=== PATIENT | female | born 1990 | race American Indian/Alaskan Native ===

== ENCOUNTER 2017-08-13 10:37 | Emergency (ER) | payer MEDICAID ==
[2017-08-13 12:01] LABS: Basophils # (Auto) 0.1 K/mm3 (0.0-0.1); Basophils % (Auto) 0.4 % (0.0-1.8); Eosinophils # (Auto) 0.2 K/mm3 (0.0-0.4); Eosinophils % (Auto) 1.2 % (0.0-4.3); Hemoglobin 11.3 gm/dl (10.1-14.3); Lymphocytes # (Auto) 1.9 K/mm3 (1.2-5.4); Lymphocytes % (Auto) 12.4 % (13.4-35.0); Mean Corpuscular HGB Conc 32 % (30-34); Mean Corpuscular Hemoglobin 26 pg (28-32); Mean Corpuscular Volume 80 fl (79-97); Monocytes # (Auto) 0.6 K/mm3 (0.0-0.8); Monocytes % (Auto) 3.9 % (0.0-7.3); Platelet Count 227 K/mm3 (140-440); Red Blood Count 4.39 M/mm3 (3.65-5.03); Red Cell Distribution Width 15.4 % (13.2-15.2)
[2017-08-13 12:11] LABS: Bacteria,Urine 4+ /HPF (Negative); Bilirubin,Urine NEG (Negative); Blood,Urine NEG (Negative); Color,Urine Yellow (Yellow); Hyaline Casts,Urine 1 /LPF; Protein,Urine <15 mg/dL mg/dL (Negative); Urobilinogen,Urine < 2.0 mg/dL (<2.0)
[2017-08-13 12:18] LABS: BUN/Creatinine Ratio 10; Blood Urea Nitrogen 8 mg/dL (7-17); Calcium 9.3 mg/dL (8.4-10.2); Hemolysis Index 23
--- NOTE | 2017-08-13 12:31 | Emergency Department Report ---
ED General Adult HPI - General Chief complaint: Nausea/Vomiting/Diarrhea Stated complaint: NAUSEA/VOMITING Time Seen by Provider: 08/13/17 12:26 Source: patient Mode of arrival: Ambulatory Limitations: No Limitations - History of Present Illness Initial comments: pt is a 27 y/o aaf with hx G4, P2, A1, is currently 13 weeks follow by [facility] 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 pt states abdominal cramping intermittent 4/10, no vaginal bleeding no vaginal discharge no fever. and low back pain , Last n/v this am. Onset/Timin -: week(s) Location: abdomen Radiation: non-radiation Severity scale (0 -10): 4 Quality: aching, other (cramping ) Consistency: intermittent Improves with: none Worsens with: none Associated Symptoms: nausea/vomiting Treatments Prior to Arrival: none - Related Data Previous Rx's Medication Instructions Recorded Last Taken Type Acetaminophen 650 mg PO QID #60 tablet 08/13/17 Unknown Rx Cephalexin [Keflex] 500 mg PO Q12HR #20 cap 08/13/17 Unknown Rx Ondansetron [Zofran Odt] 4 mg PO TID PRN #30 tab.rapdis 08/13/17 Unknown Rx Allergies Allergy/AdvReac Type Severity Reaction Status Date / Time No Known Allergies Allergy Verified 05/30/13 21:01 ED Review of Systems ROS: Stated complaint: NAUSEA/VOMITING Other details as noted in HPI Constitutional: denies: chills, fever Eyes: denies: eye pain, eye discharge, vision change ENT: denies: ear pain, throat pain Respiratory: denies: cough, shortness of breath, wheezing Cardiovascular: denies: chest pain, palpitations Endocrine: no symptoms reported Gastrointestinal: abdominal pain, nausea, vomiting. denies: diarrhea, constipation, hematemesis, melena Genitourinary: denies: urgency, dysuria, frequency, hematuria, discharge, dyspareunia Musculoskeletal: back pain. denies: joint swelling, arthralgia Skin: denies: rash, lesions Neurological: denies: headache, weakness, paresthesias Psychiatric: denies: anxiety, depression Hematological/Lymphatic: as per HPI ED Past Medical Hx - Past Medical History Previous Medical History?: Yes Hx Hypertension: No Hx Renal Disease: No Hx Sickle Cell Disease: Yes (Sickle Cell TRAIT) Hx Seizures: No Hx Asthma: Yes (last attack 05/2013) Hx HIV: No Additional medical history: Vaginal delivery x 2 - Surgical History Past Surgical History?: Yes Additional Surgical History: x 1 - Social History Smoking Status: Never Smoker Substance Use Type: Alcohol - Medications Home Medications: Home Medications Medication Instructions Recorded Confirmed Last Taken Type Acetaminophen 650 mg PO QID #60 tablet 08/13/17 Unknown Rx Cephalexin [Keflex] 500 mg PO Q12HR #20 cap 08/13/17 Unknown Rx Ondansetron [Zofran Odt] 4 mg PO TID PRN #30 tab.rapdis 08/13/17 Unknown Rx ED Physical Exam - General Limitations: No Limitations General appearance: alert, in no apparent distress - Head Head exam: Present: atraumatic, normocephalic - Eye Eye exam: Present: normal appearance - ENT ENT exam: Present: mucous membranes moist - Neck Neck exam: Present: normal inspection - Respiratory Respiratory exam: Present: normal lung sounds bilaterally. Absent: respiratory distress, wheezes, rhonchi - Cardiovascular Cardiovascular Exam: Present: regular rate, normal rhythm. Absent: systolic murmur, diastolic murmur, rubs, gallop - GI/Abdominal GI/Abdominal exam: Present: soft, normal bowel sounds. Absent: distended, tenderness, guarding, organomegaly, mass, bruit, hernia - Rectal Rectal exam: Present: deferred - Extremities Exam Extremities exam: Present: normal inspection, full ROM, normal capillary refill. Absent: tenderness - Back Exam Back exam: Present: normal inspection, full ROM. Absent: tenderness, CVA tenderness (R), CVA tenderness (L), muscle spasm, paraspinal tenderness, vertebral tenderness, rash noted - Neurological Exam Neurological exam: Present: alert, oriented X3, CN II-XII intact, normal gait, reflexes normal - Psychiatric Psychiatric exam: Present: normal affect, normal mood - Skin Skin exam: Present: warm, dry, intact, normal color. Absent: rash ED Course Vital Signs 08/13/17 11:26 Temperature 98.9 F Pulse Rate 96 H Respiratory 20 Rate Blood Pressure 126/79 O2 Sat by Pulse 99 Oximetry ED Medical Decision Making - Lab Data Result diagrams: 08/13/17 11:39 08/13/17 11:39 Laboratory Tests 08/13/17 08/13/17 08/13/17 11:39 11:39 Unknown WBC 15.3 H RBC 4.39 Hgb 11.3 Hct 35.0 MCV 80 MCH 26 L MCHC 32 RDW 15.4 H Plt Count 227 Lymph % (Auto) 12.4 L [place] % (Auto) 3.9 Eos % (Auto) 1.2 Baso % (Auto) 0.4 Lymph # 1.9 [place] # 0.6 Eos # 0.2 Baso # 0.1 Seg Neutrophils % 82.1 H Seg Neutrophils # 12.5 H Sodium 135 L Potassium 3.9 Chloride 98.7 Carbon Dioxide 25 Anion Gap 15 BUN 8 Creatinine 0.8 Estimated GFR > 60 BUN/Creatinine Ratio 10 Glucose 106 H Calcium 9.3 Urine Color Yellow Urine Turbidity Hazy Urine pH 6.0 Ur Specific [place] 1.011 Urine Protein <15 mg/dl Urine Glucose (UA) Neg Urine Ketones Neg Urine Blood Neg Urine Nitrite Neg Urine Bilirubin Neg Urine Urobilinogen < 2.0 Ur Leukocyte Esterase Mod Urine WBC (Auto) 24.0 H Urine RBC (Auto) 4.0 U Epithel Cells (Auto) 6.0 Urine Bacteria (Auto) 4+ Hyaline Casts 1 - Radiology Data Radiology results: report reviewed, image reviewed Single IUP 13 W and 3days, hr 162 bpm - Medical Decision Making pt is a 27 y/o aaf with hx G4, P2, A1, is currently 13 weeks follow by [facility] Dr. 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 pt states abdominal cramping intermittent 4/10, no vaginal bleeding no vaginal discharge no fever. and low back pain , Last n/v this am. abd exam: bs normal soft, no rebound no guarding no cva tenderness pt denies vaginal bleeding or discharge. US OB : Singl IUP 13 w, 3 days, labs: cbc: wbc: 15, cmp: normal, ua: luek, wbc, plan tx of uti during , pt denies vaginal discharge no bleeding , refuses expolration for STI, will tx with Keflex, zofran , tylenol and follow up with OBGYN at [facility] in 2-3 days return to ed if symptoms worsen, pt verbalized agreement and understanding with same. Critical care attestation.: If time is entered above; I have spent that time in minutes in the direct care of this critically ill patient, excluding procedure time. ED Disposition Clinical Impression: Nausea and vomiting during UTI (urinary tract infection) during Qualifiers: Trimester: second trimester Qualified Code(s): O23.42 - Unspecified infection of urinary tract in , second trimester Disposition: TO HOME OR SELFCARE Is pt being admited?: No Does the pt Need Aspirin: No Condition: Good Instructions: Urinary Tract Infection in Women (ED), Acute Nausea and Vomiting (ED) Prescriptions: Acetaminophen 650 mg PO QID #60 tablet Cephalexin [Keflex] 500 mg PO Q12HR #20 cap Ondansetron [Zofran Odt] 4 mg PO TID PRN #30 tab.rapdis PRN Reason: Nausea And Vomiting Referrals: PRIMARY CARE, [Primary Care Provider] - 3-5 Days Forms: Work/School Release Form(ED) Time of Disposition: 13:51
[2017-08-13] MEDS ORDERED: ZOFRAN ODT PO ONE (12:39)
--- NOTE | 2017-08-13 14:02 | Ultrasound Report ---
FINAL REPORT EXAM: US OB < = 14 WEEKS FETUS HISTORY: abdominal pain 13 weeks preg TECHNIQUE: Transabdominal OB ultrasound. PRIORS: None currently available. FINDINGS: Single intrauterine dates 13.1 weeks. SARAH equals February 17, 2018. This is 1 day older compared to the LMP and is within normal limits. BPD: 13.3 weeks. FL: 12.5 weeks. Placenta: Fundal. No previa. Hypoechoic area within the placenta may represent a venous Baxter measuring 9 x 4 x 8 mm. heart rate: 162. BPM. Uterus: 14.9 x 7.9 x 10.7 cm. Intrauterine gestational sac, yolk sac, and pole. No subchorionic bleed. Right ovary: 6.4 x 5.0 x 5.6 cm. Simple appearing cyst measures 5.4 cm. No internal flow. Left Ovary: 5.2 x 2.6 x 3.9 cm. Follicular type cyst measures 1.9 cm. Adnexal: Unremarkable. No free fluid. IMPRESSION: Single live intrauterine . Simple large right ovarian cyst. Follicular type cyst in the left ovary. Probable venous Baxter within the placenta.
[2017-08-13 14:15] VITALS: BP 120/80
== END 2017-08-13 14:15 | disposition home or self-care (01) ==
LOC: ED 10:37
DX: O23.41 Unspecified infection of urinary tract in pregnancy, first trimester (principal); O21.0 Mild hyperemesis gravidarum; Z3A.13 13 weeks gestation of pregnancy
CPT/HCPCS: 36415; 76801; 80048; 81001; 84702; 85025; Q0162

== ENCOUNTER 2017-12-14 19:24 | Outpatient (CLI) | payer MEDICAID ==
[2017-12-14 20:05] VITALS: BP 101/56
--- NOTE | 2017-12-14 22:14 | Ultrasound Report ---
FINAL REPORT EXAM: US OB BPP WO NON-STRESS HISTORY: well being TECHNIQUE: Grayscale and color flow imaging of the uterus was performed for the purpose of evaluation of biophysical profile. Comparison: Limited Ob ultrasound also performed today for the purpose of evaluation of ELISA. FINDINGS: Biophysical profile grading is as follows: breathing movements 2, movement 2, posture and tone 2, qualitative amniotic fluid volume 2. Biophysical profile is 8/8. heart rate is measured at 163 beats per minute. IMPRESSION: 1. Biophysical profile 8/8 with heart rate measured at 163 beats per minute.
--- NOTE | 2017-12-14 22:25 | Ultrasound Report ---
FINAL REPORT EXAM: US OB LIMITED HISTORY: ELISA only TECHNIQUE: Grayscale, color flow and M-mode imaging for the purpose of evaluating ELISA FINDINGS: ELISA is measured at 23.8 centimeters. heart rate is measured at 163 beats per minute. IMPRESSION: 1. ELISA is measured at 23.8 centimeters.
== END 2017-12-14 22:30 | disposition home or self-care (01) ==
LOC: TRG 19:24
PROVIDERS: ATTEND Obstetrics & Gynecology
DX: O36.8130 Decreased fetal movements, third trimester, not applicable or unspecified (principal); O26.893 Other specified pregnancy related conditions, third trimester; O99.213 Obesity complicating pregnancy, third trimester; J45.909 Unspecified asthma, uncomplicated; Z3A.30 30 weeks gestation of pregnancy
CPT/HCPCS: 59025; 76815; 76819

== ENCOUNTER 2018-01-29 09:30 | Outpatient (CLI) | payer MEDICAID ==
[2018-01-29] MEDS ORDERED: LACTATED RINGERS 500 ML IV ONE (10:07)
[2018-01-29 10:41] VITALS: BP 104/65
--- NOTE | 2018-01-29 13:20 | Ultrasound Report ---
ULTRASOUND BIOPHYSICAL PROFILE: History: well being Technique: Transabdominal ultrasound with Doppler interrogation. 2 - breathing movements 2 - movements 2 - posture and tone 2 - Qualitative amniotic fluid volume 8 - TOTAL SCORE OF POSSIBLE 8 Heart Rate (bpm) 139
== END 2018-01-29 11:45 | disposition home or self-care (01) ==
LOC: TRG 09:30
PROVIDERS: ATTEND Obstetrics & Gynecology
DX: O47.03 False labor before 37 completed weeks of gestation, third trimester (principal); O36.8130 Decreased fetal movements, third trimester, not applicable or unspecified; O99.513 Diseases of the respiratory system complicating pregnancy, third trimester; O99.213 Obesity complicating pregnancy, third trimester; J45.909 Unspecified asthma, uncomplicated; Z3A.36 36 weeks gestation of pregnancy
CPT/HCPCS: 59025; 76819

== ENCOUNTER 2018-02-08 12:05 | Outpatient (CLI) | payer MEDICAID ==
[2018-02-08 12:25] VITALS: BP 116/67
[2018-02-08] MEDS ORDERED: VISTARIL PO PRN (15:00)
== END 2018-02-08 15:43 | disposition home or self-care (01) ==
LOC: TRG 12:05
PROVIDERS: ATTEND Obstetrics & Gynecology
DX: O47.1 False labor at or after 37 completed weeks of gestation (principal); O99.213 Obesity complicating pregnancy, third trimester; O99.513 Diseases of the respiratory system complicating pregnancy, third trimester; J45.909 Unspecified asthma, uncomplicated; Z3A.38 38 weeks gestation of pregnancy
CPT/HCPCS: 59025; Q0177

== ENCOUNTER 2018-02-11 11:21 | Inpatient (IN) | payer MEDICAID ==
[2018-02-11] MEDS ORDERED: XYLOCAINE 2% INFILTRATI ONE (11:29)
[2018-02-11] MEDS ORDERED: BRETHINE SUB-Q PRN (11:29)
[2018-02-11] MEDS ORDERED: SUBLIMAZE IV PRN (11:29)
[2018-02-11] MEDS ORDERED: ZOFRAN IV PRN (11:29)
[2018-02-11] MEDS ORDERED: MINERAL OIL PO PRN (11:29)
--- NOTE | 2018-02-11 11:32 | History and Physical Report ---
History of Present Illness Date of examination: 02/11/18 (sent for IOL as per [facility] recommendation) Date of admission: 02/11/18 11:21 History of present illness: Pt sent in for IOL No chges made to hx. PE as noted in EMR EDC Confirmation: 02/20/2018 Gestational Age: 9 3/7 weeks Past History : 4 Term Births: 2 Living Children: 2 Para: 2 Elect. Ab: 1 # 1 Delivery date: 03/27/2010 Weeks Gestation: 40 Delivery type: Vaginal Hours of labor: 8 Anesthesia type: epidural Delivery location: [facility] Infant Sex: female weight: 7.81 # 2 Delivery date: 06/13/2013 Weeks Gestation: 39 Delivery type: Vaginal Anesthesia type: epidural Delivery location: [facility] Sex: female weight: 7.50 Comments: 1+mec # 3 Delivery date: 2010 Weeks Gestation: 12 Delivery type: EAB Past Medical History: Reviewed history from 04/30/2015 and no changes required: poor vision left eye Morbid obesity Hydradenitis (surgically treated) Past Surgical History: Eye sugery in 2011, both eyes Hydradenitis surgically treated in [facility] Family History Summary: Mother (biol.) - Has Family History of Diabetes - Entered On: 07/21/2017 Father (biol.) - Has Family History of Coronary Heart Disease - Brother with heart murmur - Entered On: 07/21/2017 Mother (biol.) - Has Family History Breast Cancer - Entered On: 07/21/2017 General Comments - FH: Family History Breast Cancer--mother dx 46, m gr aunt No Family History of Colon Cancer No Family History of Ovarvian Cancer Social History: non smoker no e/d Patient is Smoking History: Patient has never smoked. Risk Factors: Smoked Tobacco Use: Never smoker HIV high-risk behavior: low risk Dietary Counseling: pn yes Past Medical History Anesthesia Complications: negative Anemia: negative Autoimmune Disorder: negative Bleeding Disorder: negative Blood Transfusions: negative Breast Disease: negative Diabetes: negative Heart Disease: negative Hypertension: negative Hepatitis/Liver Disease: negative Kidney Disease/UTI: negative Neurologic/Epilepsy/Migraines: negative Phlebitis/Varicosities: negative Psychiatric: negative Pulmonary Disease/Asthma: negative Thyroid Disease: negative Hospitalizations: negative 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 Infection History Hx of STD: none HIV Risk Eval: low risk Hepatitis B Risk Eval: low risk Personal hx. of genital herpes: no Partner hx. of genital herpes: no Rash, Viral, or Febrile illness since last LMP? no Varicella/Chicken Pox Status: Previous Disease TB Risk: no Genetic History Congenital Heart Defect: Mom: no Dad: no Daniel Disease: Mom: no Dad: no Thalassemia Mom: no Dad: no Neural Tube Defect Mom: no Dad: no Down's Syndrome Mom: no Dad: no Isaac-Sachs Mom: no Dad: no Sickle Cell Disease/Trait Mom: no Dad: no Hemophilia Mom: no Dad: no Muscular Dystrophy Mom: no Dad: no Cystic Fibrosis Mom: no Dad: no [place] Chorea Mom: no Dad: no Mental Retardation Mom: no Dad: no Fragile X Mom: no Dad: no Other Genetic/Chromosomal Disorder Mom: no Dad: no Child w/other defect Mom: no Dad: no Enviromental Exposures Xray Exposure: no Medication, drug, or alcohol use since LMP: no Chemical/Other Exposure: no Exposure to Cat Liter: no Hx of Parvovirus (Fifth Disease): no Occupational Exposure to Children: none Current Allergies (reviewed today): No known allergies Past History - Obstetrical History Expected Date of Delivery: 02/18/18 Actual Gestation: 39 Week(s) 1 Day(s) : 4 Para: 2 Hx # Term Pregnancies: 2 Induced : 1 Number of Living Children: 2 Medications and Allergies Allergies Allergy/AdvReac Type Severity Reaction Status Date / Time No Known Allergies Allergy Verified 05/30/13 21:01 Home Medications Medication Instructions Recorded Confirmed Last Taken Type cephALEXin [Keflex] 500 mg PO Q12HR #20 cap 08/13/17 02/08/18 2 Days Ago Rx ~01/27/18 Pnv,Calcium 72/Iron/Folic Acid 1 each PO DAILY 01/29/18 02/08/18 02/07/18 13:00 History [Pnv Plus Multivit Tab] Sertraline [Zoloft] 50 mg PO QDAY 02/08/18 02/08/1801/08/18 12:00 History - Physical Exam Breasts: Positive: deferred Cardiovascular: Regular rate, Normal S1, Normal S2 Lungs: Positive: Clear to auscultation, Normal air movement Abdomen: Positive: normal appearance, soft, normal bowel sounds. Negative: distention, tenderness Genitourinary (Female): Positive: normal external genitalia, normal perenium Vulva: both: normal Vagina: Positive: normal moisture. Negative: discharge Cervix: Negative: lesion, discharge Uterus: Positive: normal size, normal contour Adnexa: both: normal Anus/Rectum: Positive: normal perianal skin, heme negative. Negative: rectal mass, hemorrhoids Extremities: Positive: edema Deep Tendon Reflex Grade: Normal +2 - Obstetrical FHR: category 1 Uterine Contraction Monitor Mode: External Cervical Dilatation: 1.5 (Pelvis feels adequate for delivery) Cervical Effacement Percentage: 50 station: -3 Uterine Contraction Pattern: Irregular Uterine Tone Measurement Phase: Resting Uterine Contraction Intensity: Mild Results Result Diagrams: 02/11/18 12:30 All other labs normal. Assessment and Plan 27yo @ 39 weeks sent from [facility] for IOL due to poly and macrosomia. Pt is GBS negative. Discussed with pt and family the serial nature of induction, cervidil and pitocin, and the possible need for section due to baby's EFW. Pt's pelvis on exam appears to be adequate. Pt voiced understanding and desires to begin IOL. aware of admission - Patient Problems (1) BMI 50.0-59.9, adult Current Visit: Yes Status: Acute (2) Macrosomia affecting management of mother in third trimester, single gestation Current Visit: Yes Status: Acute (3) Polyhydramnios affecting in third trimester Current Visit: Yes Status: Acute (4) 39 weeks gestation of Current Visit: No Status: Acute
[2018-02-11] MEDS ORDERED: PITOCin/NS 20 UNIT/1000ML DRIP 20 UNITS/1,000 ML BAG IV SCH (12:00)
[2018-02-11 13:13] LABS: Hematocrit 32.9 % (30.3-42.9); Hemoglobin 10.8 gm/dl (10.1-14.3); Mean Corpuscular HGB Conc 33 % (30-34); Mean Corpuscular Volume 79 fl (79-97); Platelet Count 206 K/mm3 (140-440); Red Blood Count 4.15 M/mm3 (3.65-5.03); Red Cell Distribution Width 16.4 % (13.2-15.2)
[2018-02-11 13:14] LABS: Mean Corpuscular Hemoglobin 26 pg (28-32)
[2018-02-11] MEDS: PITOCin/NS 30 UNIT/500ML 30 UNITS/500 ML BAG IV SCH (14:40)
--- NOTE | 2018-02-11 19:00 | Progress Note ---
Assessment and Plan No cervical chg Pitocin off Will allow PM care and diet once ctx space out. Explained POC to pt and family Will plan low dose pit over night Subjective - Subjective Date of service: 02/11/18 (pit @ 16 mu CTX regular ) Principal diagnosis: IUP @ 39 weeks IOL Poly/Macrosomia Patient reports: movement normal, contractions Objective - Vital Signs Vital Signs: Vital Signs - 12hr 02/11/18 02/11/18 02/11/18 12:23 13:53 14:32 Temperature 98.6 F Pulse Rate 92 H 86 107 H Respiratory 20 Rate Blood Pressure 112/68 Blood Pressure 116/68 [Right] O2 Sat by Pulse 98 Oximetry 02/11/18 02/11/18 02/11/18 14:35 14:37 14:42 Temperature Pulse Rate 116 H 81 94 H Respiratory Rate Blood Pressure Blood Pressure [Right] O2 Sat by Pulse 89 98 99 Oximetry 02/11/18 02/11/18 02/11/18 14:47 14:52 14:57 Temperature Pulse Rate 86 123 H 94 H Respiratory Rate Blood Pressure Blood Pressure [Right] O2 Sat by Pulse 99 98 99 Oximetry 02/11/18 02/11/18 02/11/18 15:02 15:07 15:12 Temperature Pulse Rate 93 H 104 H 104 H Respiratory Rate Blood Pressure Blood Pressure [Right] O2 Sat by Pulse 99 96 100 Oximetry 02/11/18 02/11/18 02/11/18 15:17 15:22 15:27 Temperature Pulse Rate 90 94 H 112 H Respiratory Rate Blood Pressure Blood Pressure [Right] O2 Sat by Pulse 100 99 98 Oximetry 02/11/18 02/11/18 02/11/18 17:38 17:43 17:48 Temperature Pulse Rate 114 H 95 H 88 Respiratory Rate Blood Pressure Blood Pressure [Right] O2 Sat by Pulse 98 98 100 Oximetry 02/11/18 02/11/18 02/11/18 17:53 17:58 18:03 Temperature Pulse Rate 99 H 100 H 100 H Respiratory Rate Blood Pressure Blood Pressure [Right] O2 Sat by Pulse 97 98 99 Oximetry 02/11/18 02/11/18 02/11/18 18:08 18:13 18:18 Temperature Pulse Rate 99 H 104 H 95 H Respiratory Rate Blood Pressure Blood Pressure [Right] O2 Sat by Pulse 99 98 99 Oximetry 02/11/18 02/11/18 02/11/18 18:23 18:28 18:33 Temperature Pulse Rate 86 92 H 90 Respiratory Rate Blood Pressure Blood Pressure [Right] O2 Sat by Pulse 97 97 96 Oximetry 02/11/18 02/11/18 02/11/18 18:38 18:43 18:48 Temperature Pulse Rate 89 91 H 97 H Respiratory Rate Blood Pressure Blood Pressure [Right] O2 Sat by Pulse 99 100 98 Oximetry 02/11/18 02/11/18 18:51 18:53 Temperature Pulse Rate 104 H 90 Respiratory Rate Blood Pressure Blood Pressure [Right] O2 Sat by Pulse 94 97 Oximetry - Exam Breasts: deferred Cardiovascular: Regular rate Lungs: Normal air movement Abdomen: Present: normal appearance, soft. Absent: distention, tenderness Uterus: Present: normal FHR: auscultation normal, category 1 Uterine Contraction Monitor Mode: External Cervical Dilatation: 1.5 (ballotable) Cervical Effacement Percentage: 50 station: -3 Uterine Contraction Frequency (min): 2-3 Uterine Contraction Duration: 45 Uterine Contraction Pattern: Regular Uterine Tone Measurement Phase: Resting Uterine Contraction Intensity: Moderate Extremities: edema Deep Tendon Reflex Grade: Normal +2 - Labs Labs: Abnormal Labs 02/11/18 12:30 WBC 14.8 H MCH 26 L RDW 16.4 H Laboratory Results - last 24 hr 02/11/18 02/11/18 12:30 12:30 WBC 14.8 H RBC 4.15 Hgb 10.8 Hct 32.9 MCV 79 MCH 26 L MCHC 33 RDW 16.4 H Plt Count 206 Blood Type A POSITIVE Antibody Screen Negative
[2018-02-11] MEDS ORDERED: AMBIEN PO PRN (19:23)
[2018-02-11] MEDS: LACTATED RINGERS 1,000 ML IV SCH (21:22)
--- NOTE | 2018-02-12 07:49 | Progress Note ---
Assessment and Plan Plan for short break from pitocin, allow shower and meal then active management pitocin. Discussed with patient importance of cooperating with efm until a time that ISE/IUPC can be safely placed. All questions addressed, verbalize understanding. RN aware of plan of care. - Patient Problems (1) BMI 50.0-59.9, adult Current Visit: Yes Status: Acute (2) Macrosomia affecting management of mother in third trimester, single gestation Current Visit: Yes Status: Acute (3) Polyhydramnios affecting in third trimester Current Visit: Yes Status: Acute (4) 39 weeks gestation of Current Visit: No Status: Acute Subjective - Subjective Date of service: 02/12/18 Principal diagnosis: IUP @ 39 weeks IOL Poly/Macrosomia Patient reports: movement normal, contractions, no loss of fluid, no vaginal bleeding Objective - Vital Signs Vital Signs: Vital Signs - 12hr 02/11/18 02/11/18 02/11/18 19:48 19:53 19:58 Pulse Rate 116 H 117 H 104 H O2 Sat by Pulse 99 100 99 Oximetry 02/11/18 02/11/18 02/11/18 20:03 20:08 21:24 Pulse Rate 89 111 H 116 H O2 Sat by Pulse 99 99 99 Oximetry 02/11/18 02/11/18 02/11/18 21:29 21:34 21:39 Pulse Rate 100 H 108 H 107 H O2 Sat by Pulse 98 96 97 Oximetry 02/11/18 02/11/18 02/11/18 21:44 21:49 21:54 Pulse Rate 84 117 H 115 H O2 Sat by Pulse 98 97 97 Oximetry 02/11/18 02/11/18 02/11/18 21:59 22:04 22:17 Pulse Rate 103 H 96 H 127 H O2 Sat by Pulse 97 97 99 Oximetry 02/11/18 02/11/18 02/11/18 22:22 22:27 22:32 Pulse Rate 113 H 73 111 H O2 Sat by Pulse 97 98 97 Oximetry 02/11/18 02/11/18 02/11/18 22:37 22:42 22:47 Pulse Rate 114 H 85 101 H O2 Sat by Pulse 97 98 98 Oximetry 02/11/18 02/11/18 02/11/18 22:52 22:57 23:02 Pulse Rate 107 H 96 H 111 H O2 Sat by Pulse 97 97 96 Oximetry 02/11/18 02/11/18 02/11/18 23:07 23:12 23:17 Pulse Rate 110 H 85 94 H O2 Sat by Pulse 95 100 100 Oximetry 02/11/18 02/11/18 02/11/18 23:22 23:34 23:39 Pulse Rate 99 H 112 H 114 H O2 Sat by Pulse 99 99 98 Oximetry 02/11/18 02/11/18 02/11/18 23:44 23:49 23:54 Pulse Rate 108 H 95 H 81 O2 Sat by Pulse 98 98 98 Oximetry 02/11/18 02/12/18 02/12/18 23:59 00:04 00:09 Pulse Rate 84 87 104 H O2 Sat by Pulse 98 98 99 Oximetry 02/12/18 02/12/18 02/12/18 00:14 00:19 00:24 Pulse Rate 100 H 98 H 96 H O2 Sat by Pulse 98 98 98 Oximetry 02/12/18 02/12/18 02/12/18 00:29 00:34 00:39 Pulse Rate 104 H 106 H 101 H O2 Sat by Pulse 98 98 97 Oximetry 02/12/18 02/12/18 02/12/18 01:11 01:16 01:21 Pulse Rate 85 97 H 101 H O2 Sat by Pulse 99 99 100 Oximetry 02/12/18 02/12/18 02/12/18 01:26 01:31 01:36 Pulse Rate 94 H 97 H 93 H O2 Sat by Pulse 78 L 100 100 Oximetry 02/12/18 02/12/18 02/12/18 01:41 01:44 01:46 Pulse Rate 91 H 85 77 O2 Sat by Pulse 100 86 100 Oximetry 02/12/18 02/12/18 02/12/18 01:51 01:52 01:56 Pulse Rate 89 97 H 97 H O2 Sat by Pulse 100 94 100 Oximetry 02/12/18 02/12/18 02:01 02:06 Pulse Rate 76 85 O2 Sat by Pulse 98 98 Oximetry - Exam Breasts: normal Cardiovascular: Regular rate Lungs: Clear to auscultation, Normal air movement Abdomen: Present: normal appearance, soft Vulva: both: normal Uterus: Present: normal FHR: auscultation normal (very difficulty to monitor - pt frequently moving and also maternal habitus. ) Uterine Contraction Monitor Mode: External Uterine Contraction Pattern: Irregular Uterine Tone Measurement Phase: Contraction Uterine Contraction Intensity: Mild Extremities: normal Deep Tendon Reflex Grade: Normal +2 - Labs Labs: Abnormal Labs 02/11/18 12:30 WBC 14.8 H MCH 26 L RDW 16.4 H Laboratory Results - last 24 hr 02/11/18 02/11/18 12:30 12:30 WBC 14.8 H RBC 4.15 Hgb 10.8 Hct 32.9 MCV 79 MCH 26 L MCHC 33 RDW 16.4 H Plt Count 206 Blood Type A POSITIVE Antibody Screen Negative
[2018-02-12] MEDS: LACTATED RINGERS 1,000 ML IV SCH (07:57)
[2018-02-12] MEDS: PITOCin/NS 30 UNIT/500ML 30 UNITS/500 ML BAG IV SCH ×4 (11:10→14:29)
--- NOTE | 2018-02-12 12:58 | Progress Note ---
Assessment and Plan - Patient Problems (1) 39 weeks gestation of Current Visit: No Status: Acute (2) BMI 50.0-59.9, adult Current Visit: Yes Status: Acute (3) Macrosomia affecting management of mother in third trimester, single gestation Current Visit: Yes Status: Acute Plan to address problem: Patient now states she had a difficult time pushing now her last that was 7 lbs. 3 oz. However she states the baby's shoulder was not stuck however the hand came down with the baby's head. Last delivery was reviewed and revealed patient pushed with 6 contractions with an uncomplicated delivery. Discussed possible shoulder dystocia. She was informed at this gestational age it would be difficult to accurately determine adequacy of her pelvis as well as weight. Explained there could be a 1-2# discrepancy in the estimated weight with ultrasound. Complications associated with shoulder dystocia were extensively explained: Permanent or temporary injury to the 's extremities, permanent brain damage, or . Risks associated with delivery were discussed: Bleeding that may require blood transfusion and its complications or hysterectomy, infection that may also require hysterectomy and may be fatal, injury to her bowel may require temporary or permanent colostomy, injury to her bladder. She was also informed that once she's had a delivery she may require subsequent delivery with all future pregnancies. Questions were encouraged and answered. Patient voiced understanding and she desires to proceed with a trial of labor if vertex presentation is confirmed. (4) Polyhydramnios affecting in third trimester Current Visit: Yes Status: Acute Subjective - Subjective Date of service: 02/12/18 Principal diagnosis: IUP @ 39 weeks IOL Poly/Macrosomia, morbid obesity Patient reports: movement normal, contractions, no loss of fluid, no vaginal bleeding Objective - Vital Signs Vital Signs: Vital Signs - 12hr 02/12/18 02/12/18 02/12/18 01:11 01:16 01:21 Temperature Pulse Rate 85 97 H 101 H Respiratory Rate Blood Pressure Blood Pressure [Right] O2 Sat by Pulse 99 99 100 Oximetry 02/12/18 02/12/18 02/12/18 01:26 01:31 01:36 Temperature Pulse Rate 94 H 97 H 93 H Respiratory Rate Blood Pressure Blood Pressure [Right] O2 Sat by Pulse 78 L 100 100 Oximetry 02/12/18 02/12/18 02/12/18 01:41 01:44 01:46 Temperature Pulse Rate 91 H 85 77 Respiratory Rate Blood Pressure Blood Pressure [Right] O2 Sat by Pulse 100 86 100 Oximetry 02/12/18 02/12/18 02/12/18 01:51 01:52 01:56 Temperature Pulse Rate 89 97 H 97 H Respiratory Rate Blood Pressure Blood Pressure [Right] O2 Sat by Pulse 100 94 100 Oximetry 02/12/18 02/12/18 02/12/18 02:01 02:06 07:45 Temperature 97.4 F L Pulse Rate 76 85 107 H Respiratory 15 Rate Blood Pressure Blood Pressure 85/45 [Right] O2 Sat by Pulse 98 98 Oximetry 02/12/18 02/12/18 02/12/18 07:47 07:49 07:56 Temperature Pulse Rate 101 H 107 H 110 H Respiratory Rate Blood Pressure 83/45 86/45 85/45 Blood Pressure [Right] O2 Sat by Pulse Oximetry 02/12/18 12:47 Temperature Pulse Rate 82 Respiratory Rate Blood Pressure Blood Pressure [Right] O2 Sat by Pulse 100 Oximetry - Exam Breasts: deferred Lungs: Normal air movement Abdomen: Present: other (obese) Vulva: both: normal Uterus: Present: other (unable to palpate) FHR: category 1 Uterine Contraction Monitor Mode: External Cervical Dilatation: 2.5 Cervical Effacement Percentage: 20 station: -4 Uterine Contraction Pattern: Irregular - Labs Labs: Abnormal Labs 02/11/18 12:30 WBC 14.8 H MCH 26 L RDW 16.4 H Laboratory Results - last 24 hr 02/11/18 02/11/18 12:30 12:30 WBC 14.8 H RBC 4.15 Hgb 10.8 Hct 32.9 MCV 79 MCH 26 L MCHC 33 RDW 16.4 H Plt Count 206 Blood Type A POSITIVE Antibody Screen Negative
--- NOTE | 2018-02-12 14:14 | Event Note ---
Date: 02/12/18 Received call from Sage MA states US reveals vertex presentation and patient desires a trial of labor. Order given to continue present care and will AROM later this pm after office completed. Instructed to call back for any problems
--- NOTE | 2018-02-12 14:40 | Ultrasound Report ---
LIMITED OB ULTRASOUND: Presentation, polyhydramnios Gestation: Malcolm Position: Cephalic ELISA = 26.1 cm Heart Rate: 154 BPM Gestational age 38 weeks 6 days.
--- NOTE | 2018-02-12 17:26 | Progress Note ---
Assessment and Plan Patient requesting to continue with IOL - she verbalizes knowledge that her baby may be too big to fit or the baby's head might fit but shoulder might get stuck. She would like AROM and epidural. AROM done - copious amounts of clear fluid. ISE and IUPC placed without difficulty. pelvis feels adequate. Will begin bolus for epidural. Dr. Redman updated. Continue titrating pitocin for adequate labor. - Patient Problems (1) BMI 50.0-59.9, adult Current Visit: Yes Status: Acute (2) Macrosomia affecting management of mother in third trimester, single gestation Current Visit: Yes Status: Acute (3) Polyhydramnios affecting in third trimester Current Visit: Yes Status: Acute (4) 39 weeks gestation of Current Visit: No Status: Acute Subjective - Subjective Date of service: 02/12/18 Principal diagnosis: IUP @ 39 weeks IOL Poly/Macrosomia, morbid obesity Patient reports: movement normal, contractions Objective - Vital Signs Vital Signs: Vital Signs - 12hr 02/12/18 02/12/18 02/12/18 07:45 07:47 07:49 Temperature 97.4 F L Pulse Rate 107 H 101 H 107 H Respiratory 15 Rate Blood Pressure 83/45 86/45 Blood Pressure 85/45 [Right] O2 Sat by Pulse Oximetry 02/12/18 02/12/18 02/12/18 07:56 12:47 17:17 Temperature Pulse Rate 110 H 82 76 Respiratory Rate Blood Pressure 85/45 Blood Pressure [Right] O2 Sat by Pulse 100 100 Oximetry - Exam Breasts: normal Cardiovascular: Regular rate Lungs: Clear to auscultation, Normal air movement Abdomen: Present: normal appearance, soft Vulva: both: normal Uterus: Present: normal FHR: auscultation normal, category 2 Uterine Contraction Monitor Mode: Internal Cervical Dilatation: 3 (cephanic - AROM copious amounts of clear fluid) Cervical Effacement Percentage: 80 station: -2 Uterine Contraction Frequency (min): 2 Uterine Contraction Pattern: Regular Uterine Tone Measurement Phase: Contraction Uterine Contraction Intensity: Moderate - Labs Labs: Abnormal Labs 02/11/18 12:30 WBC 14.8 H MCH 26 L RDW 16.4 H Laboratory Results - last 24 hr 02/11/18 12:30 RPR Nonreactive
[2018-02-12] MEDS ORDERED: NARCAN 2 MG/2 ML IV PRN (19:07)
[2018-02-12] MEDS ORDERED: fentaNYL-BUPIV 2 MCG/ML-0.125% 200 MCG/100 ML BAG EPIDURAL SCH (20:00)
--- NOTE | 2018-02-12 20:11 | Progress Note ---
Assessment and Plan SVE post epidural @ approx 1930 4-5/80/-2. Some late decels noted after epidural during period of hypotension, resolved after ephedrine. Now frequent early decels noted on tracing. Will continue to titrate pitocin for adequate labor and reeval PRN. - Patient Problems (1) BMI 50.0-59.9, adult Current Visit: Yes Status: Acute (2) Macrosomia affecting management of mother in third trimester, single gestation Current Visit: Yes Status: Acute (3) Polyhydramnios affecting in third trimester Current Visit: Yes Status: Acute (4) 39 weeks gestation of Current Visit: No Status: Acute Subjective - Subjective Date of service: 02/12/18 Principal diagnosis: IUP @ 39 weeks IOL Poly/Macrosomia, morbid obesity Patient reports: new complaints (Comfortable with epidural) Objective - Vital Signs Vital Signs: Vital Signs - 12hr 02/12/18 02/12/18 02/12/18 12:47 17:17 17:22 Pulse Rate 82 76 104 H Blood Pressure O2 Sat by Pulse 100 100 100 Oximetry 02/12/18 02/12/18 02/12/18 17:27 17:32 17:37 Pulse Rate 80 86 79 Blood Pressure 128/70 O2 Sat by Pulse 99 99 100 Oximetry 02/12/18 02/12/18 02/12/18 17:40 17:42 17:46 Pulse Rate 97 H 90 115 H Blood Pressure O2 Sat by Pulse 90 97 93 Oximetry 02/12/18 02/12/18 02/12/18 17:47 17:52 17:57 Pulse Rate 98 H 86 87 Blood Pressure 128/63 O2 Sat by Pulse 98 97 99 Oximetry 02/12/18 02/12/18 02/12/18 18:02 18:03 18:07 Pulse Rate 85 92 H 92 H Blood Pressure O2 Sat by Pulse 97 90 97 Oximetry 02/12/18 02/12/18 02/12/18 18:12 18:17 18:22 Pulse Rate 85 99 H 105 H Blood Pressure O2 Sat by Pulse 97 98 99 Oximetry 02/12/18 02/12/18 02/12/18 18:27 18:34 18:36 Pulse Rate 110 H 107 H 83 Blood Pressure 111/51 O2 Sat by Pulse 98 97 Oximetry 02/12/18 02/12/18 02/12/18 18:39 18:43 18:44 Pulse Rate 89 78 105 H Blood Pressure 108/56 O2 Sat by Pulse 99 98 Oximetry 02/12/18 02/12/18 02/12/18 18:48 18:53 18:58 Pulse Rate 81 82 79 Blood Pressure 137/64 133/66 O2 Sat by Pulse 86 97 Oximetry 02/12/18 02/12/18 02/12/18 19:02 19:03 19:04 Pulse Rate 96 H 103 H 98 H Blood Pressure 106/53 O2 Sat by Pulse 92 100 Oximetry 02/12/18 02/12/18 02/12/18 19:08 19:13 19:14 Pulse Rate 103 H 80 82 Blood Pressure 87/50 78/45 83/51 O2 Sat by Pulse 100 100 Oximetry 02/12/18 02/12/18 02/12/18 19:15 19:18 19:23 Pulse Rate 84 88 76 Blood Pressure 86/52 110/53 O2 Sat by Pulse 100 100 Oximetry 02/12/18 02/12/18 02/12/18 19:25 19:27 19:28 Pulse Rate 74 88 73 Blood Pressure 112/55 O2 Sat by Pulse 92 100 Oximetry 02/12/18 02/12/18 02/12/18 19:29 19:33 19:43 Pulse Rate 72 80 65 Blood Pressure 116/58 103/50 O2 Sat by Pulse 92 Oximetry 02/12/18 02/12/18 02/12/18 19:47 19:53 19:58 Pulse Rate 79 64 69 Blood Pressure 102/54 103/55 102/57 O2 Sat by Pulse Oximetry 02/12/18 20:02 Pulse Rate 86 Blood Pressure 102/60 O2 Sat by Pulse Oximetry - Exam Cardiovascular: Regular rate Lungs: Clear to auscultation, Normal air movement Abdomen: Present: normal appearance, soft Vulva: both: normal Uterus: Present: normal FHR: category 1 Uterine Contraction Monitor Mode: Internal Cervical Dilatation: 4.5 (@ 1930) Cervical Effacement Percentage: 80 station: -2 Uterine Contraction Frequency (min): 2-3 Uterine Contraction Duration: 60 Uterine Contraction Pattern: Regular Uterine Tone Measurement Phase: Contraction Uterine Contraction Intensity: Moderate Extremities: normal Deep Tendon Reflex Grade: Normal +2 - Labs Labs: Abnormal Labs 02/11/18 12:30 WBC 14.8 H MCH 26 L RDW 16.4 H Laboratory Results - last 24 hr 02/11/18 12:30 RPR Nonreactive
[2018-02-12] MEDS ORDERED: ZOFRAN IV PRN (21:11)
--- NOTE | 2018-02-12 21:39 | Progress Note ---
Assessment and Plan minimal change with SVE in last 2 hours. patient's position being changed from RLP to LLP q30-40 minutes, pitocin infusing @ 30mU. FHT variables noted with ctx, good variability. Patient c/o increased pain with ctx, anesthesia notified. Will continue current plan of care. Dr. Redman aware. - Patient Problems (1) BMI 50.0-59.9, adult Current Visit: Yes Status: Acute (2) Macrosomia affecting management of mother in third trimester, single gestation Current Visit: Yes Status: Acute (3) Polyhydramnios affecting in third trimester Current Visit: Yes Status: Acute (4) 39 weeks gestation of Current Visit: No Status: Acute Subjective - Subjective Date of service: 02/12/18 Principal diagnosis: IUP @ 39 weeks IOL Poly/Macrosomia, morbid obesity Patient reports: loss of fluid, contractions Objective - Vital Signs Vital Signs: Vital Signs - 12hr 02/12/18 02/12/18 02/12/18 12:47 17:17 17:22 Pulse Rate 82 76 104 H Blood Pressure O2 Sat by Pulse 100 100 100 Oximetry 02/12/18 02/12/18 02/12/18 17:27 17:32 17:37 Pulse Rate 80 86 79 Blood Pressure 128/70 O2 Sat by Pulse 99 99 100 Oximetry 02/12/18 02/12/18 02/12/18 17:40 17:42 17:46 Pulse Rate 97 H 90 115 H Blood Pressure O2 Sat by Pulse 90 97 93 Oximetry 02/12/18 02/12/18 02/12/18 17:47 17:52 17:57 Pulse Rate 98 H 86 87 Blood Pressure 128/63 O2 Sat by Pulse 98 97 99 Oximetry 02/12/18 02/12/18 02/12/18 18:02 18:03 18:07 Pulse Rate 85 92 H 92 H Blood Pressure O2 Sat by Pulse 97 90 97 Oximetry 02/12/18 02/12/18 02/12/18 18:12 18:17 18:22 Pulse Rate 85 99 H 105 H Blood Pressure O2 Sat by Pulse 97 98 99 Oximetry 02/12/18 02/12/18 02/12/18 18:27 18:34 18:36 Pulse Rate 110 H 107 H 83 Blood Pressure 111/51 O2 Sat by Pulse 98 97 Oximetry 02/12/18 02/12/18 02/12/18 18:39 18:43 18:44 Pulse Rate 89 78 105 H Blood Pressure 108/56 O2 Sat by Pulse 99 98 Oximetry 02/12/18 02/12/18 02/12/18 18:48 18:53 18:58 Pulse Rate 81 82 79 Blood Pressure 137/64 133/66 O2 Sat by Pulse 86 97 Oximetry 02/12/18 02/12/18 02/12/18 19:02 19:03 19:04 Pulse Rate 96 H 103 H 98 H Blood Pressure 106/53 O2 Sat by Pulse 92 100 Oximetry 02/12/18 02/12/18 02/12/18 19:08 19:13 19:14 Pulse Rate 103 H 80 82 Blood Pressure 87/50 78/45 83/51 O2 Sat by Pulse 100 100 Oximetry 02/12/18 02/12/18 02/12/18 19:15 19:18 19:23 Pulse Rate 84 88 76 Blood Pressure 86/52 110/53 O2 Sat by Pulse 100 100 Oximetry 02/12/18 02/12/18 02/12/18 19:25 19:27 19:28 Pulse Rate 74 88 73 Blood Pressure 112/55 O2 Sat by Pulse 92 100 Oximetry 02/12/18 02/12/18 02/12/18 19:29 19:33 19:43 Pulse Rate 72 80 65 Blood Pressure 116/58 103/50 O2 Sat by Pulse 92 Oximetry 02/12/18 02/12/18 02/12/18 19:47 19:53 19:58 Pulse Rate 79 64 69 Blood Pressure 102/54 103/55 102/57 O2 Sat by Pulse Oximetry 02/12/18 02/12/18 02/12/18 20:02 20:08 20:12 Pulse Rate 86 87 72 Blood Pressure 102/60 98/51 104/56 O2 Sat by Pulse Oximetry 02/12/18 02/12/18 02/12/18 20:18 20:24 20:27 Pulse Rate 83 77 66 Blood Pressure 115/56 122/56 117/58 O2 Sat by Pulse Oximetry 02/12/18 02/12/18 02/12/18 20:32 20:39 20:44 Pulse Rate 75 80 77 Blood Pressure 112/58 113/59 111/57 O2 Sat by Pulse Oximetry 1002/12/18 02/12/18 20:47 20:52 20:58 Pulse Rate 77 85 75 Blood Pressure 108/64 112/64 115/59 O2 Sat by Pulse Oximetry 02/12/18 02/12/18 02/12/18 21:03 21:08 21:14 Pulse Rate 82 109 H 89 Blood Pressure 116/59 118/57 118/59 O2 Sat by Pulse Oximetry - Exam Breasts: normal Cardiovascular: Regular rate Lungs: Clear to auscultation, Normal air movement Abdomen: Present: normal appearance Vulva: both: normal FHR: category 2 Uterine Contraction Monitor Mode: Internal Cervical Dilatation: 5 Cervical Effacement Percentage: 90 station: -2 Uterine Contraction Frequency (min): 2-3 Uterine Contraction Duration: 60 Uterine Contraction Pattern: Regular Uterine Tone Measurement Phase: Contraction Uterine Contraction Intensity: Moderate Extremities: normal - Labs Labs: Abnormal Labs 02/11/18 12:30 WBC 14.8 H MCH 26 L RDW 16.4 H Laboratory Results - last 24 hr 02/11/18 12:30 RPR Nonreactive
--- NOTE | 2018-02-12 23:19 | Progress Note ---
Assessment and Plan Good decent of head with ctx, SVE now 6.5/85/-1. patient still having some pain but is managing well. afebrile. FHT CAT 2 w/ variables & earlies noted. Patient turned to right side, o2 on 10l via facemask. Anticipating vaginal delivery, Dr. Redman in house - Patient Problems (1) BMI 50.0-59.9, adult Current Visit: Yes Status: Acute (2) Macrosomia affecting management of mother in third trimester, single gestation Current Visit: Yes Status: Acute (3) Polyhydramnios affecting in third trimester Current Visit: Yes Status: Acute (4) 39 weeks gestation of Current Visit: No Status: Acute Subjective - Subjective Date of service: 02/12/18 Principal diagnosis: IUP @ 39 weeks IOL Poly/Macrosomia, morbid obesity Patient reports: loss of fluid, contractions Objective - Vital Signs Vital Signs: Vital Signs - 12hr 02/12/18 02/12/18 02/12/18 12:47 17:17 17:22 Pulse Rate 82 76 104 H Blood Pressure O2 Sat by Pulse 100 100 100 Oximetry 02/12/18 02/12/18 02/12/18 17:27 17:32 17:37 Pulse Rate 80 86 79 Blood Pressure 128/70 O2 Sat by Pulse 99 99 100 Oximetry 02/12/18 02/12/18 02/12/18 17:40 17:42 17:46 Pulse Rate 97 H 90 115 H Blood Pressure O2 Sat by Pulse 90 97 93 Oximetry 02/12/18 02/12/18 02/12/18 17:47 17:52 17:57 Pulse Rate 98 H 86 87 Blood Pressure 128/63 O2 Sat by Pulse 98 97 99 Oximetry 02/12/18 02/12/18 02/12/18 18:02 18:03 18:07 Pulse Rate 85 92 H 92 H Blood Pressure O2 Sat by Pulse 97 90 97 Oximetry 02/12/18 02/12/18 02/12/18 18:12 18:17 18:22 Pulse Rate 85 99 H 105 H Blood Pressure O2 Sat by Pulse 97 98 99 Oximetry 02/12/18 02/12/18 02/12/18 18:27 18:34 18:36 Pulse Rate 110 H 107 H 83 Blood Pressure 111/51 O2 Sat by Pulse 98 97 Oximetry 02/12/18 02/12/18 02/12/18 18:39 18:43 18:44 Pulse Rate 89 78 105 H Blood Pressure 108/56 O2 Sat by Pulse 99 98 Oximetry 02/12/18 02/12/18 02/12/18 18:48 18:53 18:58 Pulse Rate 81 82 79 Blood Pressure 137/64 133/66 O2 Sat by Pulse 86 97 Oximetry 02/12/18 02/12/18 02/12/18 19:02 19:03 19:04 Pulse Rate 96 H 103 H 98 H Blood Pressure 106/53 O2 Sat by Pulse 92 100 Oximetry 02/12/18 02/12/18 02/12/18 19:08 19:13 19:14 Pulse Rate 103 H 80 82 Blood Pressure 87/50 78/45 83/51 O2 Sat by Pulse 100 100 Oximetry 02/12/18 02/12/18 02/12/18 19:15 19:18 19:23 Pulse Rate 84 88 76 Blood Pressure 86/52 110/53 O2 Sat by Pulse 100 100 Oximetry 02/12/18 02/12/18 02/12/18 19:25 19:27 19:28 Pulse Rate 74 88 73 Blood Pressure 112/55 O2 Sat by Pulse 92 100 Oximetry 02/12/18 02/12/18 02/12/18 19:29 19:33 19:43 Pulse Rate 72 80 65 Blood Pressure 116/58 103/50 O2 Sat by Pulse 92 Oximetry 02/12/18 02/12/18 02/12/18 19:47 19:53 19:58 Pulse Rate 79 64 69 Blood Pressure 102/54 103/55 102/57 O2 Sat by Pulse Oximetry 02/12/18 02/12/18 02/12/18 20:02 20:08 20:12 Pulse Rate 86 87 72 Blood Pressure 102/60 98/51 104/56 O2 Sat by Pulse Oximetry 02/12/18 02/12/18 02/12/18 20:18 20:24 20:27 Pulse Rate 83 77 66 Blood Pressure 115/56 122/56 117/58 O2 Sat by Pulse Oximetry 02/12/18 02/12/18 02/12/18 20:32 20:39 20:44 Pulse Rate 75 80 77 Blood Pressure 112/58 113/59 111/57 O2 Sat by Pulse Oximetry 02/12/18 02/12/18 02/12/18 20:47 20:52 20:58 Pulse Rate 77 85 75 Blood Pressure 108/64 112/64 115/59 O2 Sat by Pulse Oximetry 02/12/18 02/12/18 02/12/18 21:03 21:08 21:14 Pulse Rate 82 109 H 89 Blood Pressure 116/59 118/57 118/59 O2 Sat by Pulse Oximetry 02/12/18 02/12/18 21:45 22:15 Pulse Rate 76 68 Blood Pressure 102/61 114/59 O2 Sat by Pulse Oximetry - Exam Cardiovascular: Regular rate Lungs: Clear to auscultation, Normal air movement Abdomen: Present: normal appearance, soft Vulva: both: normal Uterus: Present: normal FHR: category 2 Uterine Contraction Monitor Mode: Internal Cervical Dilatation: 6.5 ( head with good decent during ctx) Cervical Effacement Percentage: 85 station: -1 Uterine Contraction Frequency (min): 2-3 Uterine Contraction Duration: 60 Uterine Contraction Pattern: Regular Uterine Tone Measurement Phase: Contraction Uterine Contraction Intensity: Moderate - Labs Labs: Abnormal Labs 02/11/18 12:30 WBC 14.8 H MCH 26 L RDW 16.4 H Laboratory Results - last 24 hr 02/11/18 12:30 RPR Nonreactive
[2018-02-13] MEDS ORDERED: METHERGINE IM ONE ×2 (01:38→02:03)
[2018-02-13] MEDS ORDERED: CYTOTEC ONE (01:38)
[2018-02-13] MEDS ORDERED: CYTOTEC PR ONE (02:03)
--- NOTE | 2018-02-13 02:14 | Procedure Note ---
<LAVONNE OSORIO - Last Filed: 02/13/18 02:04> OB Delivery Note - Delivery Date of Delivery: 02/13/18 (Vag del - female, shoulder dystocia) Surgeon: ANGELA REDMAN Industrial Safety Engineer: LAVONNE OSORIO - Vaginal Delivery presentation: vertex Delivery position: OA Intrapartum events: hydramnios, shoulder dystocia Delivery induction: oxytocin Delivery augmentation: rupture of membranes Delivery monitor: internal FHT, internal uterine Route of delivery: Delivery placenta: spontaneous Delivery cord: 3 umbilical vessels Episiotomy: midline Delivery laceration: 4th degree Anesthesia: epidural Delivery comments: Female delivered KALEY over midline episotomy. Turtle signs and trapped anterior (left) shoulder immediately identified, Staff emergency initiated - Legs placed in Jazmyn, episiotomy cut by Dr. Redman and suprapubic pressure applied. Posterior (right) shoulder delivered and then rest of delivered. 3 vessel cord clamped and cut, handed off to NICU. Placenta del intact and complete. 4th Degree repaired by Dr. Redman. EBL - , Wt 8#15 , apgars 7/9. Mother and remain LDR stable. - A at 1 minute: 7 at 5 minutes: 9 Infant Gender: Female (8#15) <ANGELA REDMAN - Last Filed: 02/13/18 02:50> OB Delivery Note - Delivery Estimated blood loss: other (400mL) - Vaginal Delivery comments: See above. Present at slow controlled delivery of head. Shoulder dystocia immediately recognized. Unable to deliver anterior left shoulder with usual maneuver, also unable to rotate shoulder, midline episiotomy performed to allow insertion of head to deliver the posterior right shoulder. Left shoulder released and easily delivered. Cord clamped and cut by Emanuel and given to NICU staff present. Small 4th degree laceration noted. The rectal mucosa repaired with 3-0 vicryl. Then the sphincter edges were grasped with Allis clamps and repaired with 2-0 vicryl interrupted stitch x2. The 2nd degree incision was repaired usual fashion. Patent anus/rectal palpated, no sutures palpated. Hemostasis noted, no hematoma present. Ice applied. Patient aware of episiotomy, repair and care. Baby in patient's arms. Both extremities were moving equally, no evidence of injury present.
[2018-02-13] MEDS ORDERED: TYLENOL PO PRN (04:00)
[2018-02-13] MEDS ORDERED: TUCKS PAD TP PRN (04:00)
[2018-02-13] MEDS ORDERED: ZOFRAN IV PRN (04:00)
[2018-02-13] MEDS ORDERED: PHENERGAN PO PRN (04:00)
[2018-02-13] MEDS ORDERED: DERMOPLAST TP PRN (04:00)
[2018-02-13] MEDS ORDERED: DULCOLAX PR PRN (04:00)
[2018-02-13] MEDS ORDERED: BENADRYL PO PRN (04:00)
[2018-02-13] MEDS ORDERED: SODIUM CHLORIDE FLUSH SYRINGE 10 ML IV NR (04:00)
[2018-02-13] MEDS ORDERED: LANSINOH TP PRN (04:00)
[2018-02-13] MEDS ORDERED: MILK OF MAGNESIA PO PRN (04:00)
[2018-02-13] MEDS ORDERED: PITOCin/NS 20 UNIT/1000ML DRIP 20 UNITS/1,000 ML BAG IV SCH (04:00)
[2018-02-13] MEDS: MOTRIN PO SCH ×3 (04:22→22:28)
[2018-02-13] MEDS: NORCO 5/325 PO PRN ×4 (05:36→22:22)
[2018-02-13] MEDS: COLACE PO SCH ×2 (11:35→22:22)
[2018-02-13] MEDS: FEOSOL PO SCH ×2 (11:35→22:22)
[2018-02-13] MEDS: PRENATAL VITAMIN PO SCH (11:36)
[2018-02-13 14:46] LABS: Hematocrit 25.4 % (30.3-42.9); Hemoglobin 8.4 gm/dl (10.1-14.3)
[2018-02-13] MEDS ORDERED: MORPHINE ONE (17:09)
[2018-02-13] MEDS ORDERED: MORPHINE IM ONE (17:33)
[2018-02-14] MEDS: MOTRIN PO SCH ×2 (04:44→13:11)
[2018-02-14] MEDS: NORCO 5/325 PO PRN ×3 (04:44→15:42)
[2018-02-14] MEDS ORDERED: BOOSTRIX IM ONE (06:00)
--- NOTE | 2018-02-14 08:29 | Discharge Summary ---
Providers - Providers Date of Admission: 02/11/18 11:21 Date of discharge: 02/14/18 (pt resting agrees with d/c) Attending physician: ANGELA BOATENG 02/13/18 04:00 Consult to Reacher [CONS] Routine Reason For Exam: assistance with , SNS Primary care physician: JAVY SINGH Hospitalization Reason for admission: induction of labor Delivery: , other (shoulder dystocia; 4th degree laceration) Episiotomy: midline Laceration: 4th degree Incision: normal Other procedures: none complications: none Discharge diagnosis: IUP at term delivered baby: female Hospital course: vaginal delivery complicated by shoulder dystocia and 4th degree laceration NB w /o injury doing well Pt resting No c/o voiced VSS FF below umb Lochia small perineum swollen intact. Wound care discussed with pt and FOB H&H 01/02 drop r/t blood loss from delivery Asymptomatic anemia Doing well s/p vag del P: d/c today with instructions RTO 2 weeks for incision check Condition at discharge: Good Disposition: DC-01 TO HOME OR SELFCARE - Discharge Diagnoses (1) BMI 50.0-59.9, adult Status: Acute (2) Macrosomia affecting management of mother in third trimester, single gestation Status: Acute (3) Polyhydramnios affecting in third trimester Status: Acute (4) 39 weeks gestation of Status: Acute (5) Shoulder dystocia during labor and delivery, delivered Status: Acute Comment: RTO 2 weeks incision check Plan - Discharge Medications Prescriptions: Docusate Sodium [Colace] 100 mg PO BID PRN #60 capsule PRN Reason: Constipation Ferrous Sulfate [Feosol 325 MG tab] 325 mg PO BID #60 tablet Ibuprofen [Motrin 800 MG tab] 800 mg PO TID PRN #30 tablet PRN Reason: Pain - Provider Discharge Summary Activity: routine, no sex for 6 weeks, no heavy lifting 4 weeks, no strenuous exercise Diet: routine Instructions: routine Additional instructions: [] Smoking cessation referral if applicable(refer to patient education folder for contact #) [] Refer to [facility] Booklet Call your doctor immediately for: * Fever > 100.5 * Heavy vaginal bleeding ( >1 pad per hour) * Severe persistent headache * Shortness of breath * Reddened, hot, painful area to leg or breast * Drainage or odor from incision. * Keep incision clean and dry at all times and follow doctor's instructions regarding bathing/showering - Follow up plan Follow up: JAVY SINGH MD [Primary Care Provider] - 7 Days (Congratulations! Please call [phone] to schedule your incision check visit in 2 weeks. Take medications as instructed. Call with any concerns.)
[2018-02-14] MEDS: COLACE PO SCH (10:16)
[2018-02-14] MEDS: PRENATAL VITAMIN PO SCH (10:17)
[2018-02-14] MEDS: FEOSOL PO SCH (10:17)
[2018-02-14 16:41] VITALS: BP 138/87
== END 2018-02-14 17:30 | disposition home or self-care (01) | DRG 775 ==
LOC: LD 11:21 → OB 02-13 07:18
PROVIDERS: ADMIT Obstetrics & Gynecology; ATTEND Obstetrics & Gynecology
PROC: 10E0XZZ Delivery of Products of Conception, External Approach (ICD-10-PCS; principal; 2018-02-13)
PROC: 10H07YZ Insertion of Other Device into Products of Conception, Via Natural or Artificial Opening (ICD-10-PCS; 2018-02-13)
PROC: 3E0R3BZ Introduction of Anesthetic Agent into Spinal Canal, Percutaneous Approach (ICD-10-PCS; 2018-02-13)
PROC: 00HU33Z Insertion of Infusion Device into Spinal Canal, Percutaneous Approach (ICD-10-PCS; 2018-02-13)
PROC: 3E033VJ Introduction of Other Hormone into Peripheral Vein, Percutaneous Approach (ICD-10-PCS; 2018-02-13)
PROC: 0DQP0ZZ Repair Rectum, Open Approach (ICD-10-PCS; 2018-02-13)
PROC: 0W8NXZZ Division of Female Perineum, External Approach (ICD-10-PCS; 2018-02-13)
DX: O40.3XX0 Polyhydramnios, third trimester, not applicable or unspecified (principal); O99.214 Obesity complicating childbirth; E66.01 Morbid (severe) obesity due to excess calories; O36.63X0 Maternal care for excessive fetal growth, third trimester, not applicable or unspecified; Z68.43 Body mass index [BMI] 50.0-59.9, adult; O66.0 Obstructed labor due to shoulder dystocia; O70.3 Fourth degree perineal laceration during delivery; Z37.0 Single live birth
CPT/HCPCS: 36415; 76815; 85014; 85018; 85027; 86592; 86850; 86900; 86901; 88307; J2210; J2270; J2405; J2590; J3010; J7120